=== PATIENT | female | born 1955 | race African-American/Black ===

== ENCOUNTER 2018-07-05 12:40 | Emergency (ER) | payer MEDICAID ==
[~2018-07-05] VITALS: Ht 167.6 cm; Wt 63.0 kg
[2018-07-05 12:44] VITALS: BP 159/91
== END 2018-07-05 18:36 | disposition left against medical advice (07) ==
LOC: ER 12:40
DX: M25.561 Pain in right knee (principal); M25.562 Pain in left knee; Z53.21 Procedure and treatment not carried out due to patient leaving prior to being seen by health care provider

== ENCOUNTER 2021-06-17 18:17 | Inpatient (IN) | payer MEDICAID, OTHER ==
[~2021-06-17] VITALS: Ht 167.6 cm; Wt 99.5 kg
[2021-06-17 22:39] LABS: BASOPHILS % 0.4 % (0.0-2.0); EOSINOPHILS % 1.8 % (0.0-5.0); HEMATOCRIT. 31.2 % (36.0-48.0); HEMOGLOBIN. 9.7 g/dL (12.0-16.0); LYMPHOCYTES % 29.6 % (20.0-50.0); MEAN CORPUSCULAR HEMOGLOBIN 24.1 pg (28.0-32.0); MEAN CORPUSCULAR VOLUME 77.5 fL (81.0-99.0); MEAN PLATELET VOLUME 8.4 fl (7.4-10.4); MONOCYTES % 13.2 % (2.0-8.0); PLATELET 182 x1000/uL (130-400); RED BLOOD CELL COUNT 4.02 mill/uL (4.2-5.4); RED CELL DISTRIBUTION WIDTH 17.6 % (11.6-14.6)
[2021-06-17 23:08] LABS: CLARITY URINE CLEAR (CLEAR); COLOR URINE DARK YELLOW (YELLOW); KETONES URINE TRACE (NEGATIVE); LEUKOCYTE ESTERASE URINE 2+ (NEGATIVE); NITRITE URINE NEGATIVE (NEGATIVE); OCCULT BLOOD URINE NEGATIVE (NEGATIVE); PH URINE 5.5 (4.5-8.0); PROTEIN URINE 1+ (NEGATIVE); SPECIFIC GRAVITY URINE 1.026 (1.005-1.030)
[2021-06-17 23:24] LABS: *AMPHETAMINES SCREEN URINE PRESUMTIVE POSITIVE (NEGATIVE); *BARBITURATES SCREEN URINE NEGATIVE (NEGATIVE); *BENZODIAZEPINES SCREEN URINE NEGATIVE (NEGATIVE); *COCAINE SCREEN URINE PRESUMTIVE POSITIVE (NEGATIVE); METHADONE URINE SCREEN NEGATIVE (NEGATIVE); OPIATES URINE SCREEN NEGATIVE (NEGATIVE)
[2021-06-17 23:25] LABS: CANNABINOID URINE SCREEN NEGATIVE (NEGATIVE); PHENCYCLIDINE URINE SCREEN NEGATIVE (NEGATIVE)
[2021-06-18 01:11] LABS: CHLORIDE 113 mEq/L (98-107)
[2021-06-18 01:15] LABS: ETHANOL BLOOD < 10 mg/dL
[2021-06-18] MEDS ORDERED: FURO40TA5 MT (01:59)
[2021-06-18] MEDS ORDERED: FUROSEMIDE 100MG/10ML VIAL IVP NR (02:00)
[2021-06-18] MEDS ORDERED: BUMETANIDE 1MG/4ML VIAL IV ONE (02:45)
[2021-06-18] MEDS ORDERED: HYDROCODONE/ACETAMINOPHEN 5/325MG TABLET PO PRN ×2 (04:45→13:30)
[2021-06-18] MEDS ORDERED: NALOXONE HCL 0.4MG/ML VIAL IV PRN (04:45)
[2021-06-18] MEDS ORDERED: CEFTRIAXONE 1 G PREMIX 50 ML IV SCH (13:15)
[2021-06-18] MEDS ORDERED: FUROSEMIDE 40MG/4ML VIAL IVP SCH (13:15)
[2021-06-18] MEDS ORDERED: ONDANSETRON HCL 4MG/2ML INJ IV PRN (13:30)
[2021-06-18] MEDS ORDERED: ACETAMINOPHEN 325MG TABLET PO PRN ×2 (13:30)
[2021-06-18] MEDS ORDERED: IPRATROPIUM/ALBUTEROL 0.5-3(2.5)MG/3ML NEB HHN PRN (13:30)
[2021-06-18] MEDS ORDERED: DOCUSATE SODIUM 100MG CAPSULE PO PRN (13:30)
[2021-06-18] MEDS ORDERED: CLONIDINE 0.1MG TABLET PO PRN (13:30)
[2021-06-18] MEDS ORDERED: LORAZEPAM 0.5MG TABLET PO PRN (13:30)
[2021-06-18] MEDS: CEFTRIAXONE 1,000 MG in DEXTROSE 5% WATER 50 ML IV SCH (14:38)
[2021-06-18] MEDS: SPIRONOLACTONE 25MG TABLET PO SCH (14:45)
[2021-06-18] MEDS: FUROSEMIDE 40MG/4ML VIAL IVP SCH (18:00)
[2021-06-19 01:16] LABS: T4 FREE 1.15 ng/dL (0.76-1.46)
[2021-06-19] MEDS: FUROSEMIDE 40MG/4ML VIAL IVP SCH ×3 (06:00→17:42)
[2021-06-19 06:49] LABS: CHLORIDE 113 mEq/L (98-107)
[2021-06-19 06:53] LABS: BASOPHILS % 0.8 % (0.0-2.0); EOSINOPHILS % 2.7 % (0.0-5.0); HEMATOCRIT. 27.8 % (36.0-48.0); HEMOGLOBIN. 8.8 g/dL (12.0-16.0); LYMPHOCYTES % 25.8 % (20.0-50.0); MEAN CORPUSCULAR HEMOGLOBIN 24.9 pg (28.0-32.0); MEAN CORPUSCULAR VOLUME 78.3 fL (81.0-99.0); MEAN PLATELET VOLUME 8.6 fl (7.4-10.4); MONOCYTES % 14.5 % (2.0-8.0); NEUTROPHILS % 56.2 % (40.0-76.0); PLATELET 129 x1000/uL (130-400); RED BLOOD CELL COUNT 3.55 mill/uL (4.2-5.4); RED CELL DISTRIBUTION WIDTH 17.9 % (11.6-14.6)
[2021-06-19 07:19] LABS: HCG SCREEN NEGATIVE
[2021-06-19 08:32] LABS: FOLIC ACID (FOLATE) SERUM 9.2 ng/mL (>5.38)
[2021-06-19] MEDS: SPIRONOLACTONE 25MG TABLET PO SCH (09:24)
[2021-06-19 09:30] VITALS: BP 168/79
[2021-06-19 11:00] VITALS: BP 168/79
[2021-06-19] MEDS: FUROSEMIDE 40MG TABLET PO SCH (11:29)
[2021-06-19] MEDS: AMLODIPINE 5MG TABLET PO SCH (11:32)
[2021-06-19 12:00] VITALS: BP 123/72
[2021-06-19] MEDS: LOSARTAN POTASSIUM 25 MG TABLET PO SCH (14:15)
[2021-06-19] MEDS: CEFTRIAXONE 1,000 MG in DEXTROSE 5% WATER 50 ML IV SCH (14:50)
[2021-06-19] MEDS: IRON SUCROSE COMPLEX 100 MG/5 ML ML IV SCH (14:50)
[2021-06-19 16:00] VITALS: BP 115/75
[2021-06-19] MEDS: POLYETHYLENE GLYCOL 3350 (17GM) 1 DOSE PACK PO SCH (17:57)
[2021-06-19] MEDS ORDERED: LACTULOSE 20G/30ML UDC PO PRN (18:15)
[2021-06-19 20:00] VITALS: BP 93/58
[2021-06-20] VITALS: BP 118/65
[2021-06-20 04:00] VITALS: BP 117/75
[2021-06-20] MEDS: FUROSEMIDE 40MG/4ML VIAL IVP SCH (05:14)
[2021-06-20 06:04] LABS: HEMATOCRIT. 26.7 % (36.0-48.0); HEMOGLOBIN. 8.3 g/dL (12.0-16.0); MEAN CORPUSCULAR HEMOGLOBIN 24.7 pg (28.0-32.0); MEAN CORPUSCULAR VOLUME 79.3 fL (81.0-99.0); MEAN PLATELET VOLUME 8.6 fl (7.4-10.4); PLATELET 136 x1000/uL (130-400); RED BLOOD CELL COUNT 3.37 mill/uL (4.2-5.4); RED CELL DISTRIBUTION WIDTH 17.8 % (11.6-14.6)
[2021-06-20 07:38] LABS: CHLORIDE 110 mEq/L (98-107)
[2021-06-20 08:00] VITALS: BP 110/72
[2021-06-20] MEDS: SPIRONOLACTONE 25MG TABLET PO SCH (10:19)
[2021-06-20] MEDS: SERTRALINE HCL 25MG TABLET PO SCH (10:19)
[2021-06-20] MEDS: IRON SUCROSE COMPLEX 100 MG/5 ML ML IV SCH (10:19)
[2021-06-20] MEDS: RISPERIDONE 0.5MG TABLET PO SCH ×3 (10:19→21:09)
[2021-06-20] MEDS: POLYETHYLENE GLYCOL 3350 (17GM) 1 DOSE PACK PO SCH (10:20)
[2021-06-20] MEDS: LOSARTAN POTASSIUM 25 MG TABLET PO SCH (10:20)
[2021-06-20] MEDS: AMLODIPINE 5MG TABLET PO SCH (10:20)
[2021-06-20] MEDS: FUROSEMIDE 40MG TABLET PO SCH (10:20)
[2021-06-20 12:00] VITALS: BP 119/65
[2021-06-20 13:36] LABS: PLATELET ESTIMATE NORMAL
[2021-06-20] MEDS: CEFTRIAXONE 1,000 MG in DEXTROSE 5% WATER 50 ML IV SCH (14:34)
[2021-06-20 16:00] VITALS: BP 122/67
[2021-06-20 20:00] VITALS: BP 101/46
[2021-06-21] VITALS: BP 127/74
[2021-06-21 04:00] VITALS: BP 117/69
[2021-06-21 07:03] LABS: HEMATOCRIT. 26.3 % (36.0-48.0); HEMOGLOBIN. 8.3 g/dL (12.0-16.0); MEAN CORPUSCULAR VOLUME 78.7 fL (81.0-99.0); MEAN PLATELET VOLUME 8.9 fl (7.4-10.4); PLATELET 132 x1000/uL (130-400); RED BLOOD CELL COUNT 3.34 mill/uL (4.2-5.4); RED CELL DISTRIBUTION WIDTH 17.9 % (11.6-14.6)
[2021-06-21 07:38] LABS: CHLORIDE 109 mEq/L (98-107)
[2021-06-21 08:00] VITALS: BP 123/72
[2021-06-21] MEDS: IRON SUCROSE COMPLEX 100 MG/5 ML ML IV SCH (09:00)
[2021-06-21] MEDS: POLYETHYLENE GLYCOL 3350 (17GM) 1 DOSE PACK PO SCH (09:00)
[2021-06-21] MEDS ORDERED: IRON SUCROSE COMPLEX 100 MG/5 ML ML IV SCH (11:00)
[2021-06-21] MEDS: AMLODIPINE 5MG TABLET PO SCH (11:01)
[2021-06-21] MEDS: LOSARTAN POTASSIUM 25 MG TABLET PO SCH (11:01)
[2021-06-21] MEDS: SPIRONOLACTONE 25MG TABLET PO SCH (11:01)
[2021-06-21] MEDS: FUROSEMIDE 40MG TABLET PO SCH (11:01)
[2021-06-21] MEDS: SERTRALINE HCL 25MG TABLET PO SCH (11:13)
[2021-06-21 11:45] LABS: PLATELET ESTIMATE NORMAL
[2021-06-21] MEDS ORDERED: FURO40TA5 MT (12:08)
[2021-06-21] MEDS ORDERED: RISP05 PO (12:08)
[2021-06-21] MEDS ORDERED: SPIR25TA PO (12:08)
[2021-06-21] MEDS ORDERED: FERR325T6 MT (12:08)
[2021-06-21] MEDS ORDERED: AMLO5TAB88 PO (12:08)
[2021-06-21] MEDS ORDERED: SERT25TA74 PO (12:08)
[2021-06-21] MEDS ORDERED: LOSA25TA3 PO (12:08)
== END 2021-06-21 11:50 | disposition home or self-care (01) | DRG 52 ==
LOC: ER 18:17 → MICUSO 06-18 02:11 → 8WST 06-19 08:04
PROVIDERS: ADMIT Internal Medicine; ATTEND Internal Medicine
PROC: 4A10X4Z Monitoring of Central Nervous Electrical Activity, External Approach (ICD-10-PCS; principal; 2021-06-20)
DX: G92.8 Other toxic encephalopathy (principal); J96.90 Respiratory failure, unspecified, unspecified whether with hypoxia or hypercapnia; I50.23 Acute on chronic systolic (congestive) heart failure; F33.9 Major depressive disorder, recurrent, unspecified; I27.21 Secondary pulmonary arterial hypertension; F14.20 Cocaine dependence, uncomplicated; D50.9 Iron deficiency anemia, unspecified; I42.0 Dilated cardiomyopathy; R79.89 Other specified abnormal findings of blood chemistry; N39.0 Urinary tract infection, site not specified; F15.20 Other stimulant dependence, uncomplicated; I08.1 Rheumatic disorders of both mitral and tricuspid valves; R53.1 Weakness; I11.0 Hypertensive heart disease with heart failure; Z59.00 Homelessness unspecified; Z91.19 Patient's noncompliance with other medical treatment and regimen; Z87.440 Personal history of urinary (tract) infections
CPT/HCPCS: 36415; 71045; 80048; 80053; 80061; 80305; 80320; 81003; 82140; 82607; 82728; 82746; 83036; 83540; 83550; 83880; 84439; 84443; 84481; 84484; 84703; 85025; 93005; 93306; 93970; 97162; 99285; J0696; J1940; J3490; J7040; J7060; G0480